=== PATIENT | female | born 1980 | race Two or more races ===

== ENCOUNTER 2021-09-30 15:23 | Emergency (ER) | payer SELFPAY ==
[~2021-09-30] VITALS: Ht 154.9 cm; Wt 122.0 kg
[2021-09-30 15:23] VITALS: BP 139/78
[2021-09-30 16:18] LABS: Basophils # (auto) 0.1 10 ^3/uL (0-0.2); Basophils % (auto) 0.8 % (0.0-2.0); Eosinophils # (auto) 0.3 10 ^3/uL (0-0.8); Eosinophils % (auto) 3.2 % (0.0-7.0); Hematocrit 43.6 % (36.0-46.0); Hemoglobin 14.8 g/dL (12.2-16.2); Lymphocytes # (auto) 2.6 10 ^3/uL (0.4-5.4); Lymphocytes % (auto) 33.7 % (10.0-50.0); Mean Corpuscular Hemoglobin 31.9 pg (28.0-32.0); Mean Corpuscular Hgb Conc. 33.9 g/dL (32.0-36.0); Mean Corpuscular Volume 93.9 fL (80.0-100.0); Monocytes # (auto) 0.6 10 ^3/uL (0-1.3); Monocytes % (auto) 7.4 % (0.0-12.0); Neutrophils # (auto) 4.3 10 ^3/uL (1.6-8.6); Neutrophils % (auto) 54.9 % (37.0-80.0); Nucleated Red Blood Cells % 0.1 %; Red Blood Cells 4.64 10^6/uL (4.0-5.20); Red Cell Distribution Width 13.8 % (11.8-14.3); White Blood Cell 7.8 10^3/uL (4.4-10.8)
[2021-09-30 16:39] LABS: Albumin 3.5 g/dL (3.4-5.0); BUN/Creatinine Ratio 16.3; Calcium 8.8 mg/dL (8.5-10.1); Potassium 4.2 mmol/L (3.5-5.1)
[2021-09-30 16:42] LABS: Bilirubin, Total 0.2 mg/dL (0.2-1.0); Total Protein 7.4 g/dL (6.4-8.2)
== END 2021-09-30 20:13 | disposition home or self-care (01) ==
LOC: ER 15:23
DX: K52.9 Noninfective gastroenteritis and colitis, unspecified (principal); Z20.822 Contact with and (suspected) exposure to COVID-19
CPT/HCPCS: 36415; 80053; 83690; 85025; 87426

== ENCOUNTER 2021-10-08 14:56 | Emergency (ER) | payer OTHER, SELFPAY ==
[~2021-10-08] VITALS: Ht 154.9 cm; Wt 119.7 kg
[2021-10-08 15:14] VITALS: BP 134/82
[2021-10-08] MEDS ORDERED: PRED20TA2 PO (22:16)
[2021-10-08] MEDS ORDERED: AZITTAB PO (22:16)
[2021-10-08] MEDS ORDERED: ACET-1304 PO (22:16)
[2021-10-08] MEDS ORDERED: PSEU1SYP6 PO (22:16)
== END 2021-10-08 22:24 | disposition home or self-care (01) ==
LOC: ER 14:56
DX: U07.1 COVID-19 (principal); M79.10 Myalgia, unspecified site; E66.9 Obesity, unspecified; J40 Bronchitis, not specified as acute or chronic; Z68.42 Body mass index [BMI] 45.0-49.9, adult
CPT/HCPCS: 36415; 71045; 87426